=== PATIENT | male | born 1980 | race Caucasian/White ===

== ENCOUNTER 2018-01-08 09:23 | Inpatient (IN) | payer BC ==
[2018-01-08] MEDS ORDERED: Ketorolac Tromethamine 30 MG/ML VIAL ONE (09:46)
--- NOTE | 2018-01-08 10:05 | RAD ---
CHEST ONE VIEW: History: Chest pain. FINDINGS: No comparison. Cardiac silhouette is magnified by projection. Pulmonary vasculature accentuated by sh allow inspiration. Linear atelectasis at the lung bases. No lobar consolidation or evidence of pneumo thorax. spice grinder leads overlie the chest. IMPRESSION: Bibasilar atelectasis. No active cardiopulmonary abnormalities are otherwise demonstrated. POS: [facility]
[2018-01-08 10:21] LABS: Hemoglobin 15.8 g/dL (14.0-18.0); Mean Corpuscular HGB CONC 33.9 g/dL (32.0-36.0); Mean Corpuscular Hemoglobin 29.5 pg (27.0-31.0); Mean Corpuscular Volume 87.1 fl (80.0-94.0); Mean Platelet Volume 7.8 fL (7.4-10.4); Platelet Count 202 thou/uL (130-400); RBC Distribution Width 11.9 % (11.5-14.5); Red Blood Cell (RBC) Count 5.35 mill/uL (4.70-6.10); White Blood Cell (WBC) Count 7.8 thou/uL (4.8-10.8)
[2018-01-08 10:23] LABS: ALT (SGPT) 44 U/L (8-55); AST (SGOT) 34 U/L (5-34); Albumin 4.4 g/dL (3.5-5.0); Alkaline Phosphatase 77 U/L (40-150); Anion Gap 12 mmol/L (10-20); BUN (Urea Nitrogen) 19 mg/dL (8.9-20.6); Bilirubin, Total 0.7 mg/dL (0.2-1.2); CK (CPK) 135 U/L (30-200); Calc. Creatinine Clearance 0 mL/min (70-130); Calcium 9.6 mg/dL (7.8-10.44); Carbon Dioxide 29 mmol/L (22-29); Chloride 101 mmol/L (98-107); Estimated GFR-MDRD 58; Globulin 3.2 g/dL (2.4-3.5); Glucose 84 mg/dL (70-105); Lipase 72 U/L (8-78); Protein, Total 7.6 g/dL (6.0-8.3); Sodium 138 mmol/L (136-145)
[2018-01-08 10:24] LABS: CKMB 5.2 ng/mL (0-6.6)
[2018-01-08 10:29] LABS: Troponin I 0.684 ng/mL (< 0.028)
[2018-01-08] MEDS ORDERED: Nitroglycerin 2% Ointment 1 INCH/1 GM Packet ONE (10:29)
[2018-01-08 10:33] LABS: Band 25 % (5-11); Eosinophils 4 % (0-10); Lymphocytes 17 % (21-51); MDiff Complete? YES; Monocytes 13 % (0-10); Neutrophil 33 % (42-75); RBC Morphology Normal; Reactive Lymphocytes 8 % (0-10)
[2018-01-08] MEDS ORDERED: Enoxaparin Sodium 100 MG/ML SYRINGE ONE (10:45)
[2018-01-08] MEDS ORDERED: Communication Order-Pharmacy FS SCH (11:30)
[2018-01-08] MEDS ORDERED: Sodium Chloride 0.9% 1,000 ML IV SCH ×2 (11:30→14:15)
[2018-01-08] MEDS ORDERED: Iopamidol 370 76% 100 ML VIAL ONE (11:46)
[2018-01-08] MEDS ORDERED: Iopamidol 370 76% 50 ML VIAL FS ONE (11:46)
--- NOTE | 2018-01-08 11:54 | CON ---
DATE OF CONSULTATION: 01/08/2018 HISTORY: Mr. Nicola Varela is a 37-year-old white male. He denies any previous cardiac problems or chest pain. At approximately 9:00 a.m. this morning, he was lying in bed and had onset of central chest pressure associated with shortness of breath, but no nausea, vomiting or diaphoresis. He ultimately came to the emergency room and was given 324 mg of chewable aspirin, Lovenox 1 mg/kg, nitro paste 1 inch, and ketorolac 30 mg IV. He states his pain resolved with those measures and currently he is pain free. PAST MEDICAL HISTORY: He states he has been told in the past that his blood pressure is somewhat high. He denies any history of diabetes or hypercholesterolemia. MEDICATIONS: None. ALLERGIES: None. OPERATIONS: None. SOCIAL HISTORY: He smoked a pack per day until 5 years ago and went to E- cigarettes and continues to use that. He rarely drinks alcohol. 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 FAMILY HISTORY: Negative for coronary artery disease. PHYSICAL EXAMINATION: VITAL SIGNS: Blood pressure on presentation was 153/100, pulse of 78. HEENT: PERRL. NECK: Supple. CHEST: Clear. CARDIAC: S1, S2 normal, without any S3, S4 or heart murmurs. ABDOMEN: Normal bowel sounds, without tenderness or organomegaly. EXTREMITIES: Revealed no clubbing, cyanosis or edema. NEUROLOGIC: Grossly intact. LABORATORY DATA AND X-RAY FINDINGS: EKG reveals normal sinus rhythm and is unremarkable. CBC is unremarkable. D-dimer is 0.32. Sodium 138, potassium 4.0 , chloride 101, carbon dioxide 29, BUN 19, creatinine 1.39. Liver function tests are normal. CK-MB is normal. Troponin I 0.684. Chest x-ray reveals bibasilar atelectasis. IMPRESSION: 1. Non-ST elevation myocardial infarction. 2. Possible hypertension. 2. Former smoker, but continues to use E-cigarettes. PLAN: With the abnormal troponin, it is recommended that he undergo cardiac catheterization. He did have donuts this morning at 6:30 and so we will wait until the early afternoon to proceed. He also had Lovenox 1 mg/kg. The other option would be to wait until the end of the 3-day holiday weekend. Risks of catheterization were discussed with the patient including , myocardial infarction, dye reaction, vascular injury, CVA, transfusion, limb loss, renal loss, etc. Risk of intervention with PTCA and stent placement were discussed including , myocardial infarction, emergent CABG, restenosis, stent thrombosis, vessel perforation, etc. He has never had any gastrointestinal bleeding or stroke. He does not have any upcoming surgery and overall was recommended that a drug-coated stent be placed if required. MARQUIS
--- NOTE | 2018-01-08 11:58 | PDOC.EVN ---
Event Note - Event Note Event Note: 37yo male brought in with crushing Chest pain evaluated in ER with negative D- Dimer,EKG however positive elevated Troponin c/w NSTEMI. Patient denies significant risk factors note prior tobacco, current E-cig use and marked recent psychosocial stressors. Patient denies illicit drug use. I have examined this patient taken HPI, ROS and PMHX and discussed the management with Dr Ramirez please see the resident Hx and Physical exam for details. Patient has been evaluated by Rolling Up Machine Operator Dr Rosenbaum and will be taken for Heart Catherization patient aware of risks and benefits and desires to proceed with procedure. appreciate cardiac consultation and recommendations.
[2018-01-08] MEDS ORDERED: Ondansetron ODT 4 MG TAB SL PRN (12:04)
[2018-01-08] MEDS ORDERED: Ondansetron HCl/PF 4 MG/2 ML Vial IVP PRN (12:04)
[2018-01-08 12:15] LABS: Cardiac Risk 3.9 (Less than 4.5)
[2018-01-08] MEDS ORDERED: Ondansetron ODT 4 MG TAB PO PRN (12:23)
[2018-01-08] MEDS ORDERED: Nitroglycerin 0.4 MG TAB (25 Tab Bottle) SL PRN ×2 (12:23→14:12)
--- NOTE | 2018-01-08 12:25 | HP-2 ---
DATE OF ADMISSION: 01/08/2018 ATTENDING PHYSICIAN: Dr. Robert. HISTORY OF PRESENT ILLNESS AND CHIEF COMPLAINT: This is a 37-year-old male who presents to the ER co mplaining about 2 hours of chest pain. He stated that his chest pain started this morning at approxi mately 9:00. He was sitting in bed and had no preceding episodes of chest pain. The chest pain was in left chest, pressure-like in sensation, radiating to his left arm, not exacerbated by activities o r relieved with rest. He did not have any additional pain with breathing or with leaning forward or lying back. The pain continued for the next 2 hours until we present and was seen in the ED at appro ximately 11:00 a.m. After receiving a shot of Toradol, his pain was relieved. In the ER, he also re ceived a 325 of aspirin and nitro paste. Currently, he says his pain has completely resolved. He de nies any kind of stressful events recently or any kind of strenuous activities. However, he has been up all night because his is going into labor and is currently being induced for labor at [facility]. PAST MEDICAL HISTORY: He specifically denies any past medical issues including chest pain, strokes o r heart issues. PAST SURGICAL HISTORY: The patient denies past surgical history. MEDICATIONS: The patient denies taking any home medications. FAMILY HISTORY: The patient endorses hypertension in his father. SOCIAL HISTORY: The patient specifically denies current alcohol or tobacco use, though he does endor se having a 5-pack-year smoking history, but has quit and is currently using E-cigarettes. He denies any kind of illicit drug use. He is currently and has a who is going into labor. ALLERGIES: No known drug allergies. REVIEW OF SYSTEMS: General: Denies fever or chills. HEENT: Denies headache, cold, cough, congesti on, rhinorrhea. Cardiovascular: Currently denies chest pain or palpitations. Respiratory: Denies pleurisy or cough. Abdomen: Denies nausea, vomiting, diarrhea, constipation, o r abdominal pain. Extremities: Denies edema. Skin: Denies rash. Neurologic: Denies focal weakness. PHYSICAL EXAMINATION: VITAL SIGNS: Blood pressure 138/95, pulse 78, respiration 18, temperature 98.4, O2 95% on room air. GENERAL: Not in acute distress, grossly oriented. HEENT: Eyes without jaundice. Moist mucosal membrane. Oropharynx clear. CARDIOVASCULAR: Regular rate and rhythm with no murmur, gallops or rubs. No pain on palpation of ch est wall. RESPIRATORY: Clear to auscultation bilaterally, nonlabored. ABDOMEN: Nontender, no distention. No guarding or rebound tenderness. Normal active bowel sounds. EXTREMITIES: No edema. SKIN: No rashes seen. NEUROLOGIC: No focal deficit. PSYCHIATRIC: Mood and affect are appropriate. Judgment and insight intact. LABORATORY DATA AND IMAGIN. WBC 7.8, hemoglobin 15.8, hematocrit 46.6, platelet 202. 2. Coags: D-dimer 0.32. 3. Chemistry: Sodium 138, potassium 4, chloride 101, bicarbonate 29, BUN 19, creatinine 1.39, AST 3 4, ALT 44, alkaline phosphatase 77, creatinine kinase 135, CK-MB 5.2, troponin 0.684. 4. Chest x-ray. Impression: Bibasilar atelectasis, no acute cardiopulmonary abnormalities demonstr ated. 5. EKG with no apparent ST abnormalities with rate of 75 and appear to be normal sinus rhythm with n ormal axis. ASSESSMENT AND PLAN: 1. [id number] elevation myocardial infarction. Cardiology has already been consulted on this ca se. At this time, plan to trend troponins and EKG. We will also rule out other causes for chest sony n by obtaining a UDS. The patient to be n.p.o., pending Cardiology for possible stress test. The pa tient to be admitted to telemetry. 2. Prophylaxis. We will place the patient on prophylactic dosing of Lovenox and sequential compress ion devices. This case has been discussed with Dr. Tilley who agrees with the assessment and plan.
[2018-01-08 12:33] VITALS: BMI 28.7
[2018-01-08] MEDS ORDERED: Heparin 10,000 UNITS/1 ML VIAL ONE (12:43)
[2018-01-08] MEDS ORDERED: Lidocaine 1% (PF) 30 ML VIAL ONE (12:44)
[2018-01-08] MEDS ORDERED: Fentanyl 100 MCG/2 ML VIAL ONE (13:16)
[2018-01-08] MEDS ORDERED: Midazolam HCl 2 mg/2 ml Vial ONE (13:16)
[2018-01-08 13:33] LABS: Magnesium 2.2 mg/dL (1.6-2.6)
[2018-01-08 13:41] LABS: Troponin I 3.052 ng/mL (< 0.028)
[2018-01-08] MEDS ORDERED: Acetaminophen/Codeine 30-300mg Tablet PO PRN ×2 (14:12)
[2018-01-08] MEDS ORDERED: traMADol HCl 50 MG TAB PO PRN (14:12)
[2018-01-08] MEDS ORDERED: Sodium Chloride 0.9% 200 ML IV SCH (14:15)
[2018-01-08 16:37] LABS: Troponin I 3.996 ng/mL (< 0.028)
[2018-01-08] MEDS ORDERED: Enoxaparin Sodium 30 MG/0.3 ML SYRINGE SC SCH (21:00)
[2018-01-08 21:03] LABS: Amphetamine Not Detected (NotDetected); Barbiturates Screen Not Detected (NotDetected); Benzodiazepine Screen Not Detected (NotDetected); Cocaine Metabolite Screen Not Detected (NotDetected); Medtox Control Line Valid? VALID (VALID); Medtox Reader # READER 1; Methadone Not Detected (NotDetected); Methamphetamine Not Detected (NotDetected); Opiate Screen Not Detected (NotDetected); Oxycodone Screen Not Detected (NotDetected); Phencyclidine (PCP) Not Detected (NotDetected); THC/Cannabinoid Screen Not Detected (NotDetected); Tricyclic Screen Not Detected (NotDetected)
[2018-01-09] MEDS: Atorvastatin Calcium 10 MG TAB PO SCH ×2 (00:08→21:12)
[2018-01-09] MEDS ORDERED: Benzocaine (Dental) 20% 10 gm Tube TOP PRN (05:10)
[2018-01-09 05:34] LABS: Band 3 % (5-11); Eosinophils 1 % (0-10); Hemoglobin 13.5 g/dL (14.0-18.0); Lymphocytes 23 % (21-51); MDiff Complete? YES; Mean Corpuscular HGB CONC 35.1 g/dL (32.0-36.0); Mean Corpuscular Hemoglobin 30.7 pg (27.0-31.0); Mean Corpuscular Volume 87.6 fl (80.0-94.0); Mean Platelet Volume 8.2 fL (7.4-10.4); Monocytes 17 % (0-10); Neutrophil 52 % (42-75); Platelet Count 195 thou/uL (130-400); RBC Distribution Width 11.9 % (11.5-14.5); RBC Morphology Normal; Reactive Lymphocytes 4 % (0-10); Red Blood Cell (RBC) Count 4.39 mill/uL (4.70-6.10); White Blood Cell (WBC) Count 6.8 thou/uL (4.8-10.8)
[2018-01-09 05:40] LABS: Anion Gap 6 mmol/L (10-20); BUN (Urea Nitrogen) 17 mg/dL (8.9-20.6); Calc. Creatinine Clearance 121 mL/min (70-130); Calcium 8.8 mg/dL (7.8-10.44); Carbon Dioxide 30 mmol/L (22-29); Cardiac Risk 4.6 (Less than 4.5); Chloride 106 mmol/L (98-107); Cholesterol 111 mg/dl (< 200 Desired); Estimated GFR-MDRD 72; Glucose 100 mg/dL (70-105); HDL Cholesterol 24 mg/dL (>60 Neg Risk); LDL Cholesterol, Calculated 69 mg/dL; Potassium 4.1 mmol/L (3.5-5.1); Sodium 138 mmol/L (136-145); Triglycerides 89 mg/dL (Less than 150)
--- NOTE | 2018-01-09 07:10 | PDOC.FM ---
- Subjective Subjective: Patient doing well this AM. No significant overnight events. Patient denies chest pain, shortness of breath, or diaphoresis this AM. He states that he has never experienced chest pain previous to yesterday's event. He has otherwise been healthy. Patient's daughter was born yesterday by C/S. - Objective MAR Reviewed: Yes Vital Signs & Weight: Vital Signs (12 hours) Temp Pulse Resp BP BP Pulse Ox 01/08/18 21:25 98.1 F 80 20 128/81 128/81 80 L Weight Weight 96.162 kg I&O: 01/08/18 01/09/18 01/10/18 06:59 06:59 06:59 Intake Total 1064 Output Total 650 Balance 414 Result Diagrams: 01/09/18 04:01 01/09/18 04:01 EKG Reviewed by me: Yes Radiology Reviewed by me: No <Jovita Holden - Last Filed: 01/09/18 07:54> - Objective Vital Signs & Weight: Vital Signs (12 hours) Temp Pulse Resp BP Pulse Ox 01/09/18 07:59 98.9 F 69 16 110/69 94 L Weight Weight 96.162 kg I&O: 01/08/18 01/09/18 01/10/18 06:59 06:59 06:59 Intake Total 1064 Output Total 650 Balance 414 Result Diagrams: 01/09/18 04:01 01/09/18 04:01 <Stevan Robert - Last Filed: 01/09/18 09:56> Phys Exam - Physical Examination Constitutional: NAD HEENT: PERRLA, moist MMs Neck: supple Respiratory: no wheezing, clear to auscultation bilateral Cardiovascular: RRR, no significant murmur Gastrointestinal: soft, non-tender, no distention, positive bowel sounds Musculoskeletal: no edema, pulses present Neurological: non-focal, normal sensation, moves all 4 limbs Lymphatic: no nodes Psychiatric: normal affect, A&O x 3 Skin: no rash, normal turgor, cap refill <2 seconds <Jovita Holden - Last Filed: 01/09/18 07:54> Dx/Plan (1) NSTEMI (non-ST elevated myocardial infarction) Code(s): I21.4 - NON-ST ELEVATION (NSTEMI) MYOCARDIAL INFARCTION Status: Acute (2) LORI (acute kidney injury) Code(s): N17.9 - ACUTE KIDNEY FAILURE, UNSPECIFIED Status: Acute - Plan Plan: NSTEMI: - Patient with crushing substernal chest pain - Troponin continued to uptrend from 0.6 to 3.9; repeat troponin pending - EKG normal - Cardiac cath showed mild CAD with preserved EF - Cardiology suspects coronary vasospasm - Cardiology consulted; appreciate recs - Patient asymptomatic today - May consider d/c home with ER precautions pending cardiology recs - Pt started on CCB, ASA, Statin LORI - Cr 1.39 to 1.16 (GFR from 58 to 72 today) - Mild fluid resuscitation - Continue to monitor kidney function while hospitalized - Encourage fluid intake CODE STATUS: FULL DVT PPX: SCDs Dispo: Stable for d/c home with cardiology follow. Dispo pending cardiology recs. <Jovita Holden - Last Filed: 01/09/18 07:54> Attending Addendum - Attending Addendum Date/Time: 01/09/1854 I personally evaluated the patient and discussed the management with Dr. Holden I agree with the History, Examination, Assessment and Plan documented above with any addition or exceptions noted below.Patient s/p Heart Cath recovering vasospastic induced NSTEMI. Patient started on ASA,Statin and CCB and will address nicotine use. Appreciate Cardiology recommendations. <Stevan Robert - Last Filed: 01/09/18 09:56>
[2018-01-09 07:49] LABS: Troponin I 1.801 ng/mL (< 0.028)
[2018-01-09] MEDS: Aspirin 325 MG TAB PO SCH (07:53)
[2018-01-10 04:42] LABS: #Eosinphils 0.2 thou/uL (0.0-0.7); #Lymphocytes 2.1 thou/uL (1.20-3.40); #Neutrophils 4.2 thou/uL (1.40-6.50); %Basophils 0.5 % (0.0-1.0); %Eosinophils 2.2 % (0.0-10.0); %Lymphocytes 28.3 % (21.0-51.0); %Monocytes 13.3 % (0.0-10.0); %Neutrophils 55.8 % (42.0-75.0); Hemoglobin 13.4 g/dL (14.0-18.0); Mean Corpuscular Hemoglobin 30.1 pg (27.0-31.0); Mean Platelet Volume 7.8 fL (7.4-10.4); Platelet Count 209 thou/uL (130-400); RBC Distribution Width 11.4 % (11.5-14.5); Red Blood Cell (RBC) Count 4.44 mill/uL (4.70-6.10); White Blood Cell (WBC) Count 7.5 thou/uL (4.8-10.8)
[2018-01-10 04:58] LABS: Anion Gap 11 mmol/L (10-20); BUN (Urea Nitrogen) 17 mg/dL (8.9-20.6); Calc. Creatinine Clearance 118 mL/min (70-130); Calcium 9.1 mg/dL (7.8-10.44); Carbon Dioxide 27 mmol/L (22-29); Chloride 104 mmol/L (98-107); Estimated GFR-MDRD 68; Glucose 94 mg/dL (70-105); Sodium 138 mmol/L (136-145)
[2018-01-10] MEDS ORDERED: Sodium Chloride 0.9% 10 ML ONE (07:51)
--- NOTE | 2018-01-10 08:07 | PDOC.FM ---
- Subjective Subjective: Patient doing well this AM. No significant overnight events. Patient denies chest pain, palpitations, shortness of breath. He declined wanting to be started on antidepressants today. He is going to follow with PCP upon discharge. - Objective MAR Reviewed: Yes Vital Signs & Weight: Vital Signs (12 hours) Temp Pulse Resp BP Pulse Ox 01/10/18 04:00 98.4 F 72 16 128/74 95 01/09/18 21:12 98.5 F 74 16 133/83 98 Weight Weight 97.522 kg I&O: 01/09/18 01/10/18 01/11/18 06:59 06:59 06:59 Intake Total 1064 1450 Output Total 650 1300 Balance 414 150 Result Diagrams: 01/10/18 04:07 01/10/18 04:07 EKG Reviewed by me: Yes Radiology Reviewed by me: No <Jovita Holden - Last Filed: 01/10/18 08:07> - Objective Vital Signs & Weight: Vital Signs (12 hours) Temp Pulse Resp BP Pulse Ox 01/10/18 08:52 98.0 F 72 16 127/74 96 01/10/18 04:00 98.4 F 72 16 128/74 95 Weight Weight 97.522 kg I&O: 01/09/18 01/10/18 01/11/18 06:59 06:59 06:59 Intake Total 1064 1450 Output Total 650 1300 Balance 414 150 Result Diagrams: 01/10/18 04:07 01/10/18 04:07 <Stevan Robert - Last Filed: 01/10/18 10:38> Phys Exam - Physical Examination Constitutional: NAD HEENT: moist MMs, sclera anicteric Neck: supple Respiratory: no wheezing, clear to auscultation bilateral Cardiovascular: RRR, no significant murmur Gastrointestinal: soft, no distention, positive bowel sounds Musculoskeletal: no edema, pulses present Neurological: non-focal, moves all 4 limbs Psychiatric: normal affect, A&O x 3 Skin: no rash, cap refill <2 seconds <Jovita Holden - Last Filed: 01/10/18 08:07> Dx/Plan (1) NSTEMI (non-ST elevated myocardial infarction) Code(s): I21.4 - NON-ST ELEVATION (NSTEMI) MYOCARDIAL INFARCTION Status: Acute (2) LORI (acute kidney injury) Code(s): N17.9 - ACUTE KIDNEY FAILURE, UNSPECIFIED Status: Acute - Plan Plan: NSTEMI: - Patient with crushing substernal chest pain - Troponin continued to uptrend from 0.6 to 3.9; repeat troponin pending - EKG normal - Cardiac cath showed mild CAD with preserved EF - Cardiology suspects coronary vasospasm - Cardiology consulted; appreciate recs - Patient asymptomatic today - May consider d/c home with ER precautions pending cardiology recs - Pt started on CCB, ASA, Statin LORI - Continue to monitor kidney function while hospitalized - Encourage fluid intake CODE STATUS: FULL DVT PPX: SCDs Dispo: Stable for d/c home with cardiology follow. Plan for discharge today. <Jovita Holden - Last Filed: 01/10/18 08:07> Attending Addendum - Attending Addendum Date/Time: 01/10/18 1036 I personally evaluated the patient and discussed the management with Dr. Holden I agree with the History, Examination, Assessment and Plan documented above with any addition or exceptions noted below.Patient stable for discharge he endorses need to f/u with PCP and precomtemplative regard RX for nicotine abuse <Stevan Robert - Last Filed: 01/10/18 10:38>
[2018-01-10 08:56] VITALS: BP 127/74; TEMP 98
[2018-01-10] MEDS: Aspirin 325 MG TAB PO SCH (08:57)
--- NOTE | 2018-01-11 22:26 | DIS-2 ---
DATE OF ADMISSION: 01/08/2018 DATE OF DISCHARGE: 01/10/2018 ADMITTING ATTENDING: Stevan Robert M.D. DISCHARGE ATTENDING: Stevan Robert M.D. RESIDENT: Jovita Holden D.O. CONSULTATIONS: Cardiology, Dr. Benja Rosenbaum. PROCEDURES: 1. Chest x-ray, bibasilar atelectasis with no active cardiopulmonary abnormalities. 2. Cardiac catheterization showed mild coronary artery disease with good ventricular function and pr obable coronary artery spasm. PRIMARY DISCHARGE DIAGNOSES: 1. Non-ST elevation myocardial infarction secondary to coronary vasospasm. 2. Possible hypertension. 3. Tobacco abuse history. 4. Acute kidney injury. DISCHARGE MEDICATIONS: 1. Aspirin 325 mg oral daily. 2. Atorvastatin calcium 10 mg oral at bedtime. 3. Diltiazem 180 mg oral daily. 4. Nitroglycerin 0.4 mg sublingual every 5 minutes as needed. HISTORY OF PRESENT ILLNESS AND HOSPITAL COURSE: This is a 37-year-old male who presented to the [facility] room complaining of 2 hours of chest pain. Chest pain started the morning of 01/08/2018 at teresita roximately 9:00 a.m. He was sitting in bed. No preceding episodes. The chest pain was in the left chest and presented as pressure-like sensation radiating to left arm. The pain was not exacerbated b y activities, relieved with rest. He did not have any additional pain with breathing or with leaning forward or lying back. The pain continued for 2 hours until he was seen in the emergency department approximately 11:00 a.m. After he was receiving a shot of Toradol, and the pain was relieved. In [facility] ER, he received 325 mg of aspirin and nitro paste. The patient states his pain completely resolve d at the time of evaluation and he denied any kind of stressful events at the time of the interview, but he has been up all night. His was going into labor and is currently being induced at the [facility]. The patient remained stable throughout the course of his hospital stay. Cardiac enzymes were elevate d with an initial troponin of 0.684 which up trended to 3.996. Dr. Rosenbaum, the fire official was co nsulted regarding NSTEMI. An EKG did not show any evidence of ischemia. Patient was taken back to c ardiac catheterization which did not show any evidence of coronary artery blockage. Dr. Rosenbaum may comprehend on some mild coronary artery disease with preserved left ventricular function. The patie nt did not have any chest pain during the course of his hospitalization, he did later endorse that he has been under lot of stress recently due to events surrounding the of his child. The patient was started on diltiazem 180 mg for treatment of coronary artery vasospasm which likely led to his N STEMI and subsequent chest pain. The patient was also sent home on aspirin and atorvastatin to jet peres taking daily. Of note, patient does not have a primary care physician. He is advised to establi sh with one to continue treatment and management of his coronary vasospasm. The patient voices under standing and was agreeable to establishing with a primary care physician. He understands the importa nce of smoking cessation and is going to make all attempts to do so. It is offered for the patient t o be started on antidepressant while in the hospital. He declined at this time, stated that he would address this with the primary care physician he decides to establish with at that time. DISPOSITION: Stable. DISCHARGE INSTRUCTIONS: 1. Location: Home. 2. Activity: As tolerated. 3. Diet: Heart healthy. 4. Followup: The patient is to establish with a primary care physician. Follow up within 7 days of discharge from the hospital to ensure resolution/improvement in symptoms and to receive further ibis gement regarding his current condition. The patient voices understanding and was agreeable with the plan.
== END 2018-01-10 13:33 | disposition home or self-care (01) | DRG 281 ==
LOC: ERS 09:23 → 2NO 11:11
PROVIDERS: ADMIT Family Medicine; ATTEND Family Medicine
PROC: 4A023N7 Measurement of Cardiac Sampling and Pressure, Left Heart, Percutaneous Approach (ICD-10-PCS; principal; 2018-01-08)
PROC: B2111ZZ Fluoroscopy of Multiple Coronary Arteries using Low Osmolar Contrast (ICD-10-PCS; 2018-01-08)
PROC: B2151ZZ Fluoroscopy of Left Heart using Low Osmolar Contrast (ICD-10-PCS; 2018-01-08)
DX: I21.A1 Myocardial infarction type 2 (principal); N17.9 Acute kidney failure, unspecified; F17.210 Nicotine dependence, cigarettes, uncomplicated; I10 Essential (primary) hypertension; Z79.899 Other long term (current) drug therapy; Z79.82 Long term (current) use of aspirin; Z87.891 Personal history of nicotine dependence
CPT/HCPCS: 36415; 71045; 80048; 80053; 80061; 80306; 82550; 82553; 83690; 83735; 84100; 84443; 84484; 85025; 85347; 85379; 93005; 93458; 93798; 96372; 96374; 99152; A4216; C1769; J1644; J1650; J1885; J2001; J2250; J3010